=== PATIENT | female | born 1985 ===

== ENCOUNTER 2019-02-17 20:32 | Emergency (ER) | payer BC, OTHER ==
[~2019-02-17] VITALS: Ht 152.4 cm; Wt 59.0 kg
--- NOTE | 2019-02-17 21:00 | ED Back Pain ---
General Chief Complaint: Back Problems Stated Complaint: PAIN IN BACK THAT RADIATES TOWARDS CHEST Source of Information: Patient (PT SPEAKS [place]) History of Present Illness Date Seen by Provider: Feb 17, 2019 Time Seen by Provider: 20:38 Initial Comments PT ARRIVES VIA POV FROM HOME PT STATES FOR THE LAST 6 WEEKS SHE HAS HAD UPPER BACK PAIN PT STATES FOR THE LAST COUPLE OF WEEKS SHE HAS BEEN SHORT OF BREATH WITH THE PAIN TONIGHT THE PAIN RADIATED TO HER LEFT SHOULDER AND LEFT UPPER CHEST + NAUSEA, NO VOMITING HAS HAD SLIGHT NASAL CONGESTION, BUT NO SIGNIFICANT COUGH NO FEVER HAS BEEN MORE TIRED THAN NORMAL LATELY NO SWELLING IN LEGS/ FEET OR PAIN IN CALVES HAS BEEN TAKING IBUPROFEN EVERY DAY FOR THE PAIN HAS NOT SOUGHT CARE UNTIL TODAY NO INJURY NO HISTORY OF SIMILAR NO RECENT TRAVEL LMP 02/12/19. NORMAL. NO CONTROL Other Comments PCP: NONE Allergies and Home Medications Allergies Coded Allergies: No Known Drug Allergies (Unverified , 02/17/19) Patient Home Medication List Home Medication List Reviewed: Yes Review of Systems Constitutional: no symptoms reported EENTM: see HPI, nose congestion Respiratory: see HPI; No cough; short of breath Cardiovascular: see HPI, chest pain; No edema, No palpitations Gastrointestinal: see HPI; No abdominal pain; nausea; No vomiting LMP: Feb 12, 2019 Control/STD Prophylaxis: None Musculoskeletal: see HPI, back pain Skin: no symptoms reported Psychiatric/Neurological: No Symptoms Reported Past Piqxmah-Aycayd-Gqikca Hx Patient Social History Alcohol Use: Denies Use Recreational Drug Use: No Smoking Status: Never a Smoker Recent Foreign Travel: No Contact w/Someone Who Travel: No Past Medical History Surgeries: No Respiratory: No Cardiac: No Neurological: No Reproductive Disorders: No Genitourinary: No Gastrointestinal: No Musculoskeletal: No Endocrine: No HEENT: No Cancer: No Psychosocial: No Integumentary: No Blood Disorders: No Physical Exam Vital Signs Vital Signs - First Documented 02/17/19 20:51 Temp 98.7 Pulse 92 Resp 14 B/P (MAP) 147/110 (122) Pulse Ox 98 O2 Delivery Room Air Capillary Refill : Height, Weight, BMI Height: '" Weight: lbs. oz. kg; BMI Method: General Appearance: No Apparent Distress, WD/WN Neck: Full Range of Motion, Normal Inspection, Non Tender, Supple; No Carotid Bruit, No JVD Cardiovascular: Regular Rate, Rhythm, No Edema, No JVD, No Murmur, Normal Peripheral Pulses Respiratory: Normal Breath Sounds, No Accessory Muscle Use, No Respiratory Distress, Other (LEFT UPPER CHEST TENDER TO PALPATION) Gastrointestinal: Normal Bowel Sounds, No Organomegaly, No Pulsatile Mass, Tenderness (MILD EPIGASTRIC AND SUPRAPUBIC TENDERNESS) Back: No Vertebral Tenderness, Other (MILD LEFT SUPSCAPULAR TENDERNESS. 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 Norm as Tested Skin: Normal Color, Warm/Dry; No Rash Progress/Results/Core Measures Results/Orders Lab Results Laboratory Tests Test 02/17/19 20:52 02/17/19 20:55 Range/Units White Blood Count 8.6 4.3-11.0 10^3/uL Red Blood Count 4.49 4.35-5.85 10^6/uL Hemoglobin 13.4 11.5-16.0 G/DL Hematocrit 38 35-52 % Mean Corpuscular Volume 85 80-99 FL Mean Corpuscular Hemoglobin 30 25-34 PG Mean Corpuscular Hemoglobin Concent 35 32-36 G/DL Red Cell Distribution Width 12.3 10.0-14.5 % Platelet Count 203 130-400 10^3/uL Mean Platelet Volume 11.2 H 7.4-10.4 FL Neutrophils (%) (Auto) 53 42-75 % Lymphocytes (%) (Auto) 36 12-44 % Monocytes (%) (Auto) 8 0-12 % Eosinophils (%) (Auto) 3 0-10 % Basophils (%) (Auto) 1 0-10 % Neutrophils # (Auto) 4.5 1.8-7.8 X 10^3 Lymphocytes # (Auto) 3.1 1.0-4.0 X 10^3 Monocytes # (Auto) 0.7 0.0-1.0 X 10^3 Eosinophils # (Auto) 0.3 0.0-0.3 10^3/uL Basophils # (Auto) 0.1 0.0-0.1 10^3/uL Prothrombin Time 14.2 12.2-14.7 SEC INR Comment 1.1 0.8-1.4 Activated Partial Thromboplast Time 31 24-35 SEC Sodium Level 140 135-145 MMOL/L Potassium Level 3.3 L 3.6-5.0 MMOL/L Chloride Level 106 98-107 MMOL/L Carbon Dioxide Level 22 21-32 MMOL/L Anion Gap 12 5-14 MMOL/L Blood Urea Nitrogen 10 7-18 MG/DL Creatinine 0.72 0.60-1.30 MG/DL Estimat Glomerular Filtration Rate > 60 BUN/Creatinine Ratio 14 Glucose Level 111 H 70-105 MG/DL Calcium Level 9.4 8.5-10.1 MG/DL Corrected Calcium 8.5-10.1 MG/DL Magnesium Level 2.3 1.8-2.4 MG/DL Total Bilirubin 1.3 H 0.1-1.0 MG/DL Aspartate Amino Transf (AST/SGOT) 20 5-34 U/L Alanine Aminotransferase (ALT/SGPT) 22 0-55 U/L Alkaline Phosphatase 74 40-136 U/L Total Creatine Kinase 95 29-168 U/L Creatine Kinase MB 0.8 <6.6 NG/ML Troponin I < 0.028 <0.028 NG/ML B-Type Natriuretic Peptide < 10.0 <100.0 PG/ML Total Protein 7.5 6.4-8.2 GM/DL Albumin 4.8 H 3.2-4.5 GM/DL Amylase Level 74 25-125 U/L Lipase 22 8-78 U/L Urine Color YELLOW Urine Clarity CLEAR Urine pH 6 5-9 Urine Specific [place] 1.005 L 1.016-1.022 Urine Protein NEGATIVE NEGATIVE Urine Glucose (UA) NEGATIVE NEGATIVE Urine Ketones NEGATIVE NEGATIVE Urine Nitrite NEGATIVE NEGATIVE Urine Bilirubin NEGATIVE NEGATIVE Urine Urobilinogen NORMAL NORMAL MG/DL Urine Leukocyte Esterase NEGATIVE NEGATIVE Urine RBC (Auto) NEGATIVE NEGATIVE Urine RBC NONE /HPF Urine WBC RARE /HPF Urine Squamous Epithelial Cells 0-2 /HPF Urine Crystals NONE /LPF Urine Bacteria FEW H /HPF Urine Casts NONE /LPF Urine Mucus NEGATIVE /LPF Urine Culture Indicated NO My Orders Orders - NETO MIRAMONTES DO Ed Iv/Invasive Line Start (02/17/19 20:47) Urine Bedside (02/17/19 20:47) Ekg Tracing (02/17/19 20:47) Monitor-Rhythm Ecg Trace Only (02/17/19 20:47) Chest Pa/Lat (2 View) (02/17/19 20:47) Amylase (02/17/19 20:47) BNP (02/17/19 20:47) Cbc With Automated Diff (02/17/19 20:47) Comprehensive Metabolic Panel (02/17/19 20:47) Creatine Kinase (02/17/19 20:47) Creatine Kinase Mb (02/17/19 20:47) Lipase (02/17/19 20:47) Magnesium (02/17/19 20:47) Protime With Inr (02/17/19 20:47) Partial Thromboplastin Time (02/17/19 20:47) Troponin I (02/17/19 20:47) Ua Culture If Indicated (02/17/19 20:47) Ketorolac Injection (Toradol Injection) (02/17/19 22:15) Potassium Chloride (Tablet) (Klor Con Ta (02/17/19 22:15) Vital Signs/I&O 02/17/19 02/17/19 20:51 21:15 Temp 98.7 Pulse 92 86 Resp 14 14 B/P (MAP) 147/110 (122) 132/94 (107) Pulse Ox 98 100 O2 Delivery Room Air Room Air Progress Progress Note : Progress Note UNEVENTFUL ER STAY PAIN EASED AT DISMISSAL Initial ECG Impression Date: Feb 17, 2019 Initial ECG Impression Time: 20:47 Initial ECG Rate: 100 Initial ECG Rhythm: Normal Sinus Initial ECG Comparisson: No Previous ECG Available Diagnostic Imaging Comments CXR--NO ACUTE PROCESS, PER RADIOLOGIST REPORT @ 2110 Reviewed: Reviewed by Me Departure Impression Primary Impression: Chest wall pain Additional Impression: Hypokalemia Disposition: 01 HOME, SELF-CARE Condition: Improved Departure-Patient Inst. Referrals: NO,LOCAL PHYSICIAN (PCP/Family) Primary Care Physician Patient Instructions: Chest Pain That Is Not Caused by the Heart (DC), Muscle and Bone Pain (DC) Add. Discharge Instructions: MOIST HEAT TO AREA AT 20 MINUTE INTERVALS TYLENOL NEEDED FOR PAIN FOLLOW UP WITH DR OF CHOICE IN 3-4 DAYS IF NO BETTER All discharge instructions reviewed with patient and/or family. Voiced understanding. 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
[2019-02-17 21:03] LABS: BILIRUBIN,URINE NEGATIVE (NEGATIVE); CLARITY,URINE CLEAR; COLOR,URINE YELLOW; GLUCOSE, URINE (UA) NEGATIVE (NEGATIVE); KETONES,URINE NEGATIVE (NEGATIVE); LEUKOCYTE ESTERASE ,URINE NEGATIVE (NEGATIVE); NITRITE,URINE NEGATIVE (NEGATIVE); PH,URINE 6 (5-9); PROTEIN,URINE NEGATIVE (NEGATIVE); UROBILINOGEN,URINE NORMAL (NORMAL)
--- NOTE | 2019-02-17 21:05 | Diagnostic Imaging Report ---
INDICATION: Left-sided chest pain. TIME OF EXAM: 8:59 p.m. EXAMINATION: Two views of the chest were obtained. COMPARISON: No prior studies are available for comparison. FINDINGS: The heart size is normal. The pulmonary vascularity is unremarkable. The lungs are clear. No infiltrate, effusion or pneumothorax is detected. IMPRESSION: No acute cardiopulmonary process is detected. Dictated by: Dictated on workstation # [id number]
[2019-02-17 21:14] LABS: BACTERIA,URINE FEW /HPF; SQUAMOUS EPITHELIAL CELL,UR 0-2 /HPF; WBC,URINE RARE /HPF
[2019-02-17 21:15] VITALS: BP 132/94
[2019-02-17 21:20] LABS: BASOPHILS # (AUTO) 0.1 10^3/uL (0.0-0.1); BASOPHILS % (AUTO) 1 % (0-10); EOSINOPHILS # (AUTO) 0.3 10^3/uL (0.0-0.3); EOSINOPHILS % (AUTO) 3 % (0-10); HEMATOCRIT 38 % (35-52); HEMOGLOBIN 13.4 G/DL (11.5-16.0); LYMPHOCYTES # (AUTO) 3.1 X 10^3 (1.0-4.0); LYMPHOCYTES % (AUTO) 36 % (12-44); MEAN CORPUSCULAR HEMOGLOBIN 30 PG (25-34); MEAN CORPUSCULAR HGB CONC 35 G/DL (32-36); MEAN CORPUSCULAR VOLUME 85 FL (80-99); MEAN PLATELET VOLUME 11.2 FL (7.4-10.4); MONOCYTES # (AUTO) 0.7 X 10^3 (0.0-1.0); MONOCYTES % (AUTO) 8 % (0-12); NEUTROPHILS # (AUTO) 4.5 X 10^3 (1.8-7.8); NEUTROPHILS % (AUTO) 53 % (42-75); PLATELET COUNT 203 10^3/uL (130-400); RED CELL DISTRIBUTION WIDTH 12.3 % (10.0-14.5); WHITE BLOOD COUNT 8.6 10^3/uL (4.3-11.0)
[2019-02-17 21:29] LABS: INR 1.1 (0.8-1.4); PROTHROMBIN TIME PATIENT 14.2 SEC (12.2-14.7)
[2019-02-17 21:49] LABS: ALANINE AMINOTRANSFERASE 22 U/L (0-55); ALBUMIN 4.8 GM/DL (3.2-4.5); ALKALINE PHOSPHATASE 74 U/L (40-136); AMYLASE 74 U/L (25-125); BILIRUBIN,TOTAL 1.3 MG/DL (0.1-1.0); BUN/CREATININE RATIO 14; CALCIUM 9.4 MG/DL (8.5-10.1); CARBON DIOXIDE 22 MMOL/L (21-32); CHLORIDE 106 MMOL/L (98-107); CREATINE KINASE 95 U/L (29-168); CREATININE SERUM 0.72 MG/DL (0.60-1.30); GFR ESTIMATED > 60; GLUCOSE 111 MG/DL (70-105); LIPASE 22 U/L (8-78); MAGNESIUM 2.3 MG/DL (1.8-2.4); POTASSIUM 3.3 MMOL/L (3.6-5.0); SODIUM 140 MMOL/L (135-145); TOTAL PROTEIN 7.5 GM/DL (6.4-8.2)
[2019-02-17 21:55] LABS: CREATINE KINASE MB 0.8 NG/ML (<6.6)
[2019-02-17] MEDS ORDERED: METH4TAB PO (22:14)
[2019-02-17] MEDS ORDERED: CYCL10TA9 PO (22:14)
[2019-02-17] MEDS ORDERED: KCL 10 MEQ TAB (MICRO K) PO ONE (22:15)
[2019-02-17] MEDS ORDERED: KETOROLAC 30 MG/ML VIAL IVP ONE (22:15)
[2019-02-17 22:28] VITALS: BP 129/85
== END 2019-02-17 22:33 | disposition home or self-care (01) ==
LOC: ER 20:35
DX: R07.89 Other chest pain (principal); E87.6 Hypokalemia
CPT/HCPCS: 36415; 71046; 80053; 81000; 82150; 82550; 82553; 83690; 83735; 83880; 84484; 84703; 85025; 85610; 85730; 93005; 93041

== ENCOUNTER 2019-07-09 06:05 | Emergency (ER) | payer OTHER ==
[~2019-07-09] VITALS: Ht 152.4 cm; Wt 63.4 kg
[~2019-07-09 06:05] MED LIST: CYCL10TA9 PO; METH4TAB PO
[2019-07-09] MEDS ORDERED: ONDANSETRON 4 MG (ZOFRAN) ORAL DISSOLVE TAB PO STA (06:29)
[2019-07-09] MEDS ORDERED: RT-ALBUTEROL/IPRATROPIUM 3 ML (DUONEB) VIAL INH ONE (06:30)
[2019-07-09] MEDS ORDERED: ANTACID SUSP 30 ML UDC (MYLANTA) PO ONE (06:30)
[2019-07-09] MEDS ORDERED: NS IV 1000 ML 2,000 ML ONE (06:58)
--- NOTE | 2019-07-09 06:58 | ED General ---
General Chief Complaint: Abdominal/GI Problems Stated Complaint: PAIN IN FACE,CHEST Nursing Triage Note: Patient was working on a machine at [employer] and states that motor oil got sprayed into her face. Bystander states that there was immense pressure. Patient states that she did swallow some and is having some respiratory discomfort. Patient also states that she vomited after the incident. Patient is complaining of abdominal discomfort and nausea. Patient is also having frequent coughing. Nursing Sepsis Screen: No Definite Risk History of Present Illness Date Seen by Provider: Jul 09, 2019 Time Seen by Provider: 06:53 Initial Comments Patient presenting to emergency department for evaluation of exposure to motor oil. She was at work when a pipe under pressure sprayed into her face as she was standing over the top of it. Patient says that she think she inhaled some as well as may have swallowed some. She was wearing her safety goggles at the time but thinks it still may have had some in her eyes as her eyes has some burning. She denies any vision changes but she does have some nausea with one episode of vomiting and she has a persistent cough. She says she does not feel short of breath at this time. She says that she is healthy and takes no medications on a regular basis. She did wash is soft with soap and water shortly after exposure. She is in no obvious distress with normal vital signs. Allergies and Home Medications Allergies Coded Allergies: No Known Drug Allergies (Unverified , 07/09/19) Patient Home Medication List Home Medication List Reviewed: Yes Review of Systems Review of Systems Constitutional: no symptoms reported EENTM: eye pain Respiratory: cough Cardiovascular: no symptoms reported Gastrointestinal: abdominal pain, nausea, vomiting Genitourinary: no symptoms reported Musculoskeletal: no symptoms reported Skin: no symptoms reported Psychiatric/Neurological: No Symptoms Reported All Other Systems Reviewed Negative Unless Noted: Yes Past [place] Hx Patient Social History Alcohol Use: Denies Use Recreational Drug Use: No Smoking Status: Never a Smoker Recent Foreign Travel: No Contact w/Someone Who Travel: No Recent Infectious Disease Expo: No Physical Abuse: No Sexual Abuse: No Mistreated: No Fear: No Seasonal Allergies Seasonal Allergies: No Past Medical History Surgeries: No Respiratory: No Cardiac: No Neurological: No Genitourinary: No Gastrointestinal: No Musculoskeletal: No Endocrine: No HEENT: No Cancer: No Psychosocial: No Integumentary: No Physical Exam Vital Signs Vital Signs - First Documented 07/09/19 06:10 Temp 36.8 Pulse 99 Resp 20 B/P (MAP) 140/89 (106) Pulse Ox 97 O2 Delivery Room Air Capillary Refill : Less Than 3 Seconds Height, Weight, BMI Height: '" Weight: lbs. oz. kg; 27.00 BMI Method: General Appearance: No Apparent Distress, WD/WN Eyes: Bilateral Eye Normal Inspection, Bilateral Eye PERRL, Bilateral Eye EOMI HEENT: PERRL/EOMI, Pharynx Normal Neck: Supple Respiratory: Lungs Clear, No Respiratory Distress Cardiovascular: Regular Rate, Rhythm Gastrointestinal: Non Tender, Soft Extremity: Normal Capillary Refill, Normal Inspection Neurologic/Psychiatric: Alert, Oriented x3 Skin: Normal Color, Warm/Dry Progress/Results/Core Measures Suspected Sepsis Recent Fever Within 48 Hours: No Infection Criteria Present: None New/Unexplained Altered Menta: No Sepsis Screen: No Definite Risk SIRS Temperature: Pulse: 99 Respiratory Rate: 20 Blood Pressure 140 /89 Mean: 106 Results/Orders My Orders Orders - RADHA BOSE DO Chest Pa/Lat (2 View) (07/09/19 06:29) Albuterol/Ipra Inhalation Soln (Duoneb I (07/09/19 06:30) Antacid Suspension (Mylanta Suspension (07/09/19 06:30) Svn Small Volume Nebulizer (07/09/19 06:29) Ondansetron Oral Dissolve Tab (Zofran (07/09/19 06:29) Ns Iv 1000 Ml (Sodium Chloride 0.9%) (07/09/19 06:58) Tetracaine 0.5% Ophth Denisa Sdv (Tetracai (07/09/19 07:05) Tetracaine 0.5% Ophth Denisa Sdv (Tetracai (07/09/19 07:30) Sodium Chloride 0.9% Irrigatio (Ns Irrig (07/09/19 07:30) Medications Given in ED Current Medications Medications Dose Ordered Sig/Jocelynn Route Start Time Stop Time Status Last Admin Dose Admin Al Hydrox/Mg Hydrox/Simethicone 30 ml ONCE ONCE PO 07/09/19 06:30 07/09/19 06:31 DC 07/09/19 06:33 30 ML Albuterol/ Ipratropium 3 ml ONCE ONCE INH 07/09/19 06:30 07/09/19 06:31 DC 07/09/19 06:33 3 ML Sodium Chloride 2,000 ml UD ONCE IR 07/09/19 07:30 07/09/19 07:31 DC 07/09/19 07:25 2,000 ML Tetracaine HCl 1 OR 2 DROPS INTO AFFEC... ONCE ONCE OP 07/09/19 07:30 07/09/19 07:31 DC 07/09/19 07:25 4 ML Vital Signs/I&O 07/09/19 06:10 Temp 36.8 Pulse 99 Resp 20 B/P (MAP) 140/89 (106) Pulse Ox 97 O2 Delivery Room Air Capillary Refill : Less Than 3 Seconds Blood Pressure Mean: 106 Progress Note : Progress Note Long and GI exams are unremarkable as well as her eyes as there is no obvious injection. She appears well with normal vital signs. I spoke to the poison center and this would be considered a hydrocarbon exposure which could cause long and GI upset. I will irrigate her eyes with a Elton lens. She will receive Zofran and a breathing treatment with some Mylanta. Poison center said that delayed pulmonary edema and intubation is reported in the literature. Patient will be observed for at least 4 hours and then essentially said she can be discharged when she is feeling better and at her baseline. 1000 - patient has no further nausea cough or sensation of eye burning. She says she is completely back to her baseline and feels well and would like to go home. I told her if she has any further discomfort or concerns she should come back to emergency department she should also follow with her primary care provider and occupational health in the next 48 hours. Patient has normal vital signs with normal breath sounds and normal oxygen saturation. I told her that there is always a possibility of delayed pulmonary edema so she should not hesitate to come back with any concerns. Patient aware and agreeable with plan for discharge and verbalized understanding of the need for short-term follow-up and strict ED return precautions discussed as above. Departure Impression Primary Impression: Chemical injury of eye Additional Impressions: Accidental hydrocarbon ingestion Inhalation injury due to chemical Disposition: HOME, SELF-CARE Condition: Stable Departure-Patient Inst. Scripts Ondansetron (Ondansetron Odt) 4 Mg Tab.rapdis 4 MG PO Q6H PRN for NAUSEA/VOMITING-1ST LINE, #10 TAB Prov: RADHA BOSE DO 07/09/19 RADHA BOSE DO Jul 09, 2019 06:58
--- NOTE | 2019-07-09 07:04 | Diagnostic Imaging Report ---
Patient History: Cough.. Technique: Two views of the chest Comparison: 02/17/2019 FINDINGS: The lung volumes are normal. No focal consolidation is seen. No large pleural effusion or pneumothorax is seen. The cardiomediastinal silhouette is normal in size and contour. No acute osseous abnormality is seen. IMPRESSION: 1. No acute pleuroparenchymal process. Dictated by: Dictated on workstation # [id number]
[2019-07-09] MEDS ORDERED: TETRACAINE 0.5% OPHTH SOLN 4 ML BTL (SINGLE DOSE ONLY) ONE (07:05)
--- NOTE | 2019-07-09 07:25 | NUR ---
Bilateral eye irrigation began with Elton Lens after administration of Tetracaine drops for comfort/Dr Echeverria requests 1 L NS each eye.
[2019-07-09] MEDS ORDERED: TETRACAINE 0.5% OPHTH SOLN 4 ML BTL (SINGLE DOSE ONLY) OP ONE (07:30)
[2019-07-09] MEDS ORDERED: NS IR ONE (07:30)
--- NOTE | 2019-07-09 08:00 | NUR ---
Eye irrigation completed. Notified patient and employer of [employer] patient to stay 2 more hours to equal 4 hrs in ER monitored.
--- NOTE | 2019-07-09 09:00 | NUR ---
Pt resting quietly awake and no verbalized c/o's of SOA or breathing difficulties. No wheezing noted.
--- NOTE | 2019-07-09 10:00 | NUR ---
Patient is feeling improved. Dr Barrera to room. Plan for release to home and may return to work tomorrow. Pt is far sighted and also does not have her corrective lens here. Pt taken to do eye acuity as charted.
[2019-07-09] MEDS ORDERED: ONDA4TAB11 PO (10:03)
[2019-07-09 10:05] VITALS: BP 120/74
--- NOTE | 2019-07-09 10:05 | NUR ---
Pt discharged to home after review of home instructions. Printed Instructions in [place] per
== END 2019-07-09 10:05 | disposition home or self-care (01) ==
LOC: ER FS 06:08 → MERGE 06:08 → ER FS 10:05
DX: T50.991A Poisoning by other drugs, medicaments and biological substances, accidental (unintentional), initial encounter (principal); T26.91XA Corrosion of right eye and adnexa, part unspecified, initial encounter; T26.92XA Corrosion of left eye and adnexa, part unspecified, initial encounter; J68.9 Unspecified respiratory condition due to chemicals, gases, fumes and vapors
CPT/HCPCS: 71046; 99283

== ENCOUNTER → 2020-12-25 | Outpatient (CLI) | payer BC, OTHER ==
[~2020-12-25] MED LIST changes: +ONDA4TAB11 PO
== END ==
LOC: LABNPT 05:49
PROVIDERS: ATTEND Orthopaedic Surgery
DX: Z01.812 Encounter for preprocedural laboratory examination (principal); Z20.822 Contact with and (suspected) exposure to COVID-19
CPT/HCPCS: 87635

== ENCOUNTER 2021-04-02 11:17 | Outpatient (RCR) | payer OTHER | END 2021-04-20 | disposition home or self-care (01) | PROVIDERS: ATTEND Nurse Practitioner Family | DX: M65.4 Radial styloid tenosynovitis [de Quervain] (principal) ==